=== PATIENT | female | born 1990 | race Caucasian/White ===

== ENCOUNTER 2019-12-24 14:29 | Outpatient (CLI) | payer BC ==
--- NOTE | 2019-12-24 16:40 | MRI ---
MRI LUMBAR SPINE NONCONTRAST: DATE: 12/24/2019 HISTORY: 37-year-old female with left-sided low back pain with left lumbar radiculopathy: Paresthesia and hype sthesia of left lower extremity COMPARISON: None FINDINGS: 5 lumbar-type vertebrae. Vertebral body heights are maintained. No central spinal canal stenosis at a ny level. With the exception of left L4-5 neural foramen, and no neural foraminal stenosis at any level. Alignm ent is normal. Intervertebral discs have normal signal and height. Conus medullaris terminates at L2. Cauda equina is arranged in a symmetrical, normal distribution throughout the thecal sac. Diffuse ly homogeneous bone marrow signal on all pulse sequences. This includes a homogeneously hypointense signal of marrow on T1 WI. This is nonspecific, but probably represents high red marrow content and r elatively low fatty marrow. There is an approximately 4 x 2.5 x 3 cm solid mass with well-circumscribed margins which occupies th e entire left neural foramen, and deeply indenting the medial aspect of the left so as muscle. No surrounding soft tissue edema. The mass is T1 hypointense, and heterogeneously T2 intermediate signal with very irregularly-shaped T2 hyperintense component centrally. 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 Recommend neurosurgical consultation. 2) the rest of the lumbar spine is normal.
== END 2019-12-24 14:30 | disposition home or self-care (01) ==
LOC: BICMRI 14:29
PROVIDERS: ATTEND Physician Assistant
DX: M54.42 Lumbago with sciatica, left side (principal); R29.898 Other symptoms and signs involving the musculoskeletal system; D49.2 Neoplasm of unspecified behavior of bone, soft tissue, and skin
CPT/HCPCS: 36415; 72148; 80053; 80061; 84443; 85025; 87624; 88142; G0123

== ENCOUNTER 2020-01-30 09:12 | Outpatient (CLI) | payer BC ==
[~2020-01-30 09:12] MED LIST: Magnevist 469MG/ML 20 ML VIAL ONE
--- NOTE | 2020-01-30 11:22 | MRI ---
MRI OF CERVICAL SPINE WITHOUT CONTRAST: INDICATION: Neck pain. COMPARISON: Correlation is made to MRI lumbar spine 12/24/2019 which revealed a nerve root tumor left L4 nerve ro ot. FINDINGS: The cervical vertebrae maintain normal height and alignment. Disk spaces are normally maintained and exhibit normal signal. C2-3: No significant abnormality. C3-4: Mild disk bulge effaces the anterior subarachnoid space. No cord impingement. No central can al or foraminal stenosis. C4-5: No significant abnormality. C5-6: No significant abnormality. C6-7: Mild disk bulge flattens the thecal sac. Anterior subarachnoid space is preserved. No centra l canal or foraminal stenosis. C7-T1: No significant abnormality. Cervical cord signal is normal. IMPRESSION: Very mild disk bulge at C3-4, C5-6, and C7 as noted above. MRI cervical spine otherwise unremarkable . POS: [facility]
--- NOTE | 2020-01-30 11:23 | MRI ---
THORACIC SPINE MRI WITHOUT CONTRAST: HISTORY: Thoracic spine pain. Neck pain and numbness. Tingling down the left leg and fingers. FINDINGS: Appropriate T1 marrow signal intensity of the thoracic vertebrae. Thoracic spine vertebral body heigh t is maintained. No fracture. No significant STIR hyperintensity to suggest ligamentous injury or vertebral body edema. Incidental hemangioma at T7. Appropriate signal intensity of the visualized lung parenchyma, mediastinum, paraspinal muscles and s olid organs. The thoracic cord terminates at the mid L1 level. Thoracic cord has a normal size and signal intensity. No cord expansion. No cord malacia. T8-T9: Central disc herniation. Mild deformity of the thecal sac. Mild deformity of the thoracic cord . Mild central canal stenosis. IMPRESSION: Mild degenerative change at T8-T9. Transcribed Date/Time: 01/30/2020 12:37 PM
--- NOTE | 2020-01-30 11:44 | RAD ---
Exam: 3 views thoracic spine HISTORY: Pain FINDINGS: AP, swimmer's and lateral view of the thoracic spine were performed 12 thoracic type vertebra. Thoracic spine vertebral body height is maintained. No fracture. Disc spac e heights are preserved. IMPRESSION: No radiographic abnormality.
--- NOTE | 2020-01-30 11:47 | RAD ---
Exam: 4 views cervical spine HISTORY: AP, lateral neutral, lateral flexion and lateral extension views of the cervical spine perfo rmed Predental space is normal. No prevertebral soft tissue swelling. Disc space heights are preserved. Ve rtebral body heights are maintained. There is no fracture. On the AP projection, no malalignment. In the neutral position, there is slight straightening of cervical lordosis. No abnormal motion upon extension or flexion. Spinal listhesis: 1.6 mm of anterolisthesis of C5 upon C6 in the neutral position; 1.4 cm of anteroli sthesis upon flexion; anterolisthesis resolves upon extension IMPRESSION: No radiographic abnormality with regards to the cervical spine. Grade 1 anterolisthesis o f C5 upon C6.
--- NOTE | 2020-01-30 12:21 | MRI ---
MRI LUMBAR SPINE WITH CONTRAST ONLY: Date: 01/30/2020 INDICATION: Lumbar radiculopathy. Follow-up MRI lumbar spine without contrast performed 12/24/2019 which describe d a nerve sheath tumor involving the left L4 nerve root. Comparison made to MRI of 12/24/2019. FINDINGS: Today's postcontrast exam again demonstrates the mass involving the left L4 nerve root within the L4- L5 foramina. This mass shows diffuse enhancement. There is some heterogeneity in the central portion of this mass which could represent some internal cystic component. In the axial image, this mass beatriz ures approximately 4.0 cm width x 2.3 cm AP dimension. IMPRESSION: Enhancing mass involving the left L4 nerve root within the left L4-L5 foramina. Enhancing characteris tics would suggest schwannoma. POS: [facility]
== END 2020-01-30 09:13 | disposition home or self-care (01) ==
LOC: BICMRI 09:12
PROVIDERS: ATTEND Surgery
DX: M54.16 Radiculopathy, lumbar region (principal); M54.2 Cervicalgia; M54.6 Pain in thoracic spine; M79.606 Pain in leg, unspecified; M25.519 Pain in unspecified shoulder; M43.12 Spondylolisthesis, cervical region; M47.814 Spondylosis without myelopathy or radiculopathy, thoracic region; M50.21 Other cervical disc displacement, high cervical region; M48.8X6 Other specified spondylopathies, lumbar region
CPT/HCPCS: 72050; 72070; 72141; 72146; 72149

== ENCOUNTER 2020-05-22 08:23 | Outpatient (CLI) | payer BC ==
[2020-05-22 10:07] LABS: Anion Gap 12 mmol/L (10-20); BUN (Urea Nitrogen) 11 mg/dL (7.0-18.7); Calc. Creatinine Clearance 0 mL/min (70-130); Calcium 9.4 mg/dL (7.8-10.44); Carbon Dioxide 27 mmol/L (22-29); Chloride 105 mmol/L (98-107); Glucose 96 mg/dL (70-105); Potassium 4.4 mmol/L (3.5-5.1); Sodium 140 mmol/L (136-145)
[2020-05-22 10:10] LABS: Hemoglobin 13.3 g/dL (12.0-15.5); Mean Corpuscular HGB CONC 32.7 g/dL (32.0-36.0); Mean Corpuscular Hemoglobin 29.3 pg (27.0-33.0); Mean Corpuscular Volume 89.6 fl (81.6-98.3); Platelet Count 341 10x3/uL (150-450); RBC Distribution Width 11.7 % (11.5-14.5); Red Blood Cell (RBC) Count 4.54 10x6/uL (3.90-5.03)
[2020-05-22 10:33] LABS: PTT 29.7 sec (22.0-33.0); Prothrombin Time 10.6 sec (9.5-12.1)
[2020-05-22 18:22] LABS: SARS-CoV-2 PCR by NAA Not Detected (NotDetected)
== END 2020-05-22 08:24 | disposition home or self-care (01) ==
LOC: LABBT 08:23
PROVIDERS: ATTEND Surgery
DX: Z01.818 Encounter for other preprocedural examination (principal); Z01.812 Encounter for preprocedural laboratory examination; Z20.822 Contact with and (suspected) exposure to COVID-19; D36.17 Benign neoplasm of peripheral nerves and autonomic nervous system of trunk, unspecified
CPT/HCPCS: 80048; 85027; 85610; 85730; 87635; 93005; 93010; U0003; U0005

== ENCOUNTER 2020-05-22 08:30 | Inpatient (IN) | payer BC ==
[2020-05-23 13:32] VITALS: BMI 27.4
[2020-05-27] MEDS ORDERED: Thrombin 5000 UNITS/5 ML VIAL ONE ×2 (06:34→09:27)
[2020-05-27] MEDS ORDERED: Fentanyl 250 MCG/5 ML VIAL ONE (06:49)
[2020-05-27] MEDS ORDERED: Propofol 1,000 MG/100 ML VIAL IV ONE (06:59)
[2020-05-27] MEDS ORDERED: Scopolamine 1.5 mg/72 hour Patch ONE (07:18)
[2020-05-27] MEDS ORDERED: Midazolam HCl 2 mg/2 ml Vial ONE (07:18)
[2020-05-27] MEDS ORDERED: Clindamycin/D5W 900 mg/50 ml Premix Bag ONE (07:24)
[2020-05-27] MEDS ORDERED: Levofloxacin 500 mg/D5W 100 ml Premix Bag ONE (07:24)
[2020-05-27] MEDS ORDERED: Succinylcholine 200 MG/10 ml SYRINGE FS ONE (08:11)
[2020-05-27] MEDS ORDERED: PROPOFOL 200 MG/20 ML VIAL ONE (08:11)
[2020-05-27] MEDS ORDERED: Ondansetron PF 4 MG/2 ML Vial ONE (08:11)
[2020-05-27] MEDS ORDERED: Ketorolac Tromethamine 30 MG/ML VIAL ONE (08:11)
[2020-05-27] MEDS ORDERED: Dexamethasone 20 MG/5 ML VIAL ONE (08:11)
[2020-05-27] MEDS ORDERED: Lidocaine 1% PF 5 ML VIAL ONE (08:11)
[2020-05-27] MEDS ORDERED: Milk Of Magnesia 30 ML UDCUP PO PRN (10:53)
[2020-05-27] MEDS ORDERED: Mag-Al 1200 mg/1200 mg/30 ML UDCUP PO PRN (10:53)
[2020-05-27] MEDS ORDERED: Acetaminophen/Codeine 30-300mg Tablet PO PRN (10:53)
[2020-05-27] MEDS ORDERED: Acetaminophen 325 MG TAB PO PRN (10:53)
[2020-05-27] MEDS ORDERED: Ondansetron PF 4 MG/2 ML Vial IVP PRN (10:53)
[2020-05-27] MEDS ORDERED: traMADol HCl 50 MG TAB PO PRN (10:53)
[2020-05-27] MEDS ORDERED: Morphine 2 MG/ML VIAL SLOW IVP PRN (10:53)
[2020-05-27] MEDS ORDERED: Bisacodyl 10 MG SUPP PR PRN (10:53)
[2020-05-27] MEDS ORDERED: oxyCODONE 5 MG TAB PO PRN (10:57)
[2020-05-27] MEDS ORDERED: Diazepam 5 MG TAB PO PRN (10:58)
[2020-05-27] MEDS ORDERED: Promethazine HCl 12.5 MG in Sodium Chloride 0.9% 50 ML IVPB PRN (10:59)
[2020-05-27] MEDS ORDERED: Promethazine HCl 25 MG/ML VIAL ONE (11:08)
[2020-05-27] MEDS ORDERED: Fentanyl 100 MCG/2 ML VIAL ONE (11:11)
[2020-05-27] MEDS ORDERED: HYDROmorphone 2 MG/ML VIAL ONE (11:59)
[2020-05-27] MEDS: Clindamycin/D5W 900 MG in Premix Bag 1 BAG IVPB SCH ×2 (15:28→22:59)
[2020-05-27] MEDS: Sodium Chloride 0.9% 1,000 ML IV SCH (15:28)
[2020-05-27] MEDS: Gabapentin 300 MG CAP PO SCH ×2 (15:29→21:01)
[2020-05-28] MEDS: Sodium Chloride 0.9% 1,000 ML IV SCH ×2 (02:11→05:46)
[2020-05-28 08:23] VITALS: TEMP 98.3
[2020-05-28] MEDS: Gabapentin 300 MG CAP PO SCH (09:23)
[2020-05-28 13:05] VITALS: BP 131/58
== END 2020-05-28 11:48 | disposition home or self-care (01) | DRG 520 ==
LOC: SURG A 05-27 06:02 → T4-A 05-27 14:44
PROVIDERS: ADMIT Surgery; ATTEND Surgery
PROC: 00BY0ZX Excision of Lumbar Spinal Cord, Open Approach, Diagnostic (ICD-10-PCS; principal; 2020-05-27)
PROC: 4A1104G Monitoring of Peripheral Nervous Electrical Activity, Intraoperative, Open Approach (ICD-10-PCS; 2020-05-27)
DX: D36.17 Benign neoplasm of peripheral nerves and autonomic nervous system of trunk, unspecified (principal); R20.8 Other disturbances of skin sensation; R51.9 Headache, unspecified
CPT/HCPCS: 76000; 88307; 88331; J1100; J1170; J1885; J1956; J2250; J2405; J2550; J2704; J3010; J3370; J3490

== ENCOUNTER 2023-08-02 16:00 | Outpatient (CLI) | payer OTHER | END 2023-08-02 16:01 | disposition home or self-care (01) | LOC: SLEEPLAB 16:00 | DX: G47.33 Obstructive sleep apnea (adult) (pediatric) (principal); R53.83 Other fatigue; E66.9 Obesity, unspecified; R06.83 Snoring; G47.10 Hypersomnia, unspecified; M54.9 Dorsalgia, unspecified; G89.29 Other chronic pain; R51.9 Headache, unspecified; G47.00 Insomnia, unspecified; Z68.32 Body mass index [BMI] 32.0-32.9, adult; G47.52 REM sleep behavior disorder | CPT/HCPCS: 95810 ==

== ENCOUNTER 2025-02-26 05:43 | Day surgery (SDC) | payer BC ==
[2025-02-22 13:06] VITALS: BMI 31.1
[2025-02-26] MEDS ORDERED: Bacitracin Zinc Ointment 30 gm TUBE ONE (06:46)
[2025-02-26] MEDS ORDERED: Lidocaine 1% PF 5 ML VIAL ONE (06:53)
[2025-02-26] MEDS ORDERED: Rocuronium Bromide 10 MG/ML (10ML VIAL) ONE (06:53)
[2025-02-26] MEDS ORDERED: fentaNYL PF 100 MCG/2 ML SYRINGE ONE ×2 (06:53→07:42)
[2025-02-26] MEDS ORDERED: Ondansetron PF 4 MG/2 ML Vial ONE (06:53)
[2025-02-26] MEDS ORDERED: PROPOFOL 20 ML ONE (06:53)
[2025-02-26] MEDS ORDERED: Vancomycin 1 GM/200 ML (FROZEN) BAG ONE (07:02)
[2025-02-26] MEDS ORDERED: PROPOFOL 200 MG/20 ML VIAL ONE (07:20)
== END 2025-02-26 14:20 | disposition home or self-care (01) ==
LOC: SDC 05:43
PROVIDERS: ATTEND Orthopaedic Surgery Hand Surgery
PROC: 01N40ZZ Release Ulnar Nerve, Open Approach (ICD-10-PCS; principal; 2025-02-26)
PROC: 01S50ZZ Reposition Median Nerve, Open Approach (ICD-10-PCS; principal; 2025-02-26)
PROC: 01N50ZZ Release Median Nerve, Open Approach (ICD-10-PCS; principal; 2025-02-26)
DX: G56.01 Carpal tunnel syndrome, right upper limb (principal); G56.23 Lesion of ulnar nerve, bilateral upper limbs; G56.11 Other lesions of median nerve, right upper limb; G43.909 Migraine, unspecified, not intractable, without status migrainosus; Z88.0 Allergy status to penicillin; Z88.5 Allergy status to narcotic agent; Z91.0120 Allergy to eggs, unspecified; Z88.6 Allergy status to analgesic agent; Z79.899 Other long term (current) drug therapy
CPT/HCPCS: A6223; J0665; J0702; J1100; J2250; J2405; J2550; J2704; J3010; J3373